=== PATIENT | male | born 1965 | race Caucasian/White ===

== ENCOUNTER → 2022-08-03 | Day surgery (SDC) | payer OTHER ==
[2022-07-29 13:58] VITALS: BMI 31.3
[~2022-08-03] MED LIST: BUPIVACAINE HCL/PF 0.5% (5MG/ML) 10 ML VIAL ONE; DEXMEDETOMIDINE HCL 200 MCG/2 ML IVPB ONE; LACTATED RINGERS SOLUTION 1,000 ML IV SCH; LIDOCAINE HCL 1%, 10 MG/ML (10ML VIAL) MDV ONE; LIDOCAINE HCL 1%, 10 MG/ML (20ML VIAL) NR ONE; MIDAZOLAM HCL 2 MG/2 ML SINGLE DOSE VIAL ONE; ONDANSETRON 4 MG/2 ML VIAL IVPUSH PRN; PROPOFOL 40 ML ONE; SUCCINYLCHOLINE CHLORIDE 200 MG/10 ML SYRINGE ONE; ceFAZolin SODIUM 1 GM VIAL IVPB ONE; oxyCODONE HCL 5 MG TABLET ONE; oxyCODONE HCL 5 MG TABLET PO PRN
[2022-08-03 12:46] VITALS: PULSE 80; RESP 20
[2022-08-03 13:41] VITALS: BP 115/79; TEMP 97.4
== END | disposition home or self-care (01) ==
LOC: JASU-SURG 04:21
PROVIDERS: ATTEND Surgery
PROC: 07B10ZX Excision of Right Neck Lymphatic, Open Approach, Diagnostic (ICD-10-PCS; principal; 2022-08-03 09:30)
DX: R59.0 Localized enlarged lymph nodes (principal)
CPT/HCPCS: 88307-TC; 94760

== ENCOUNTER 2022-10-14 03:57 | Day surgery (SDC) | payer OTHER ==
[2022-10-12 10:50] VITALS: BMI 34.7
[~2022-10-14 03:57] MED LIST changes: -BUPIVACAINE HCL/PF 0.5% (5MG/ML) 10 ML VIAL ONE; -DEXMEDETOMIDINE HCL 200 MCG/2 ML IVPB ONE; -LACTATED RINGERS SOLUTION 1,000 ML IV SCH; +LIDOCAINE 1% P/F 10 MG/ML VIAL INF ONE; -LIDOCAINE HCL 1%, 10 MG/ML (10ML VIAL) MDV ONE; -LIDOCAINE HCL 1%, 10 MG/ML (20ML VIAL) NR ONE; +MICROFIBRILLAR COLLAGEN 1 GM EACH TP ONE; -MIDAZOLAM HCL 2 MG/2 ML SINGLE DOSE VIAL ONE; -ONDANSETRON 4 MG/2 ML VIAL IVPUSH PRN; -PROPOFOL 40 ML ONE; -SUCCINYLCHOLINE CHLORIDE 200 MG/10 ML SYRINGE ONE; -oxyCODONE HCL 5 MG TABLET ONE; -oxyCODONE HCL 5 MG TABLET PO PRN
[2022-10-14] MEDS ORDERED: PROPOFOL 40 ML ONE (07:26)
[2022-10-14] MEDS ORDERED: ROCURONIUM BROMIDE 50 MG/5 ML SYRINGE ONE (07:27)
[2022-10-14] MEDS ORDERED: SUCCINYLCHOLINE CHLORIDE 200 MG/10 ML SYRINGE ONE ×2 (07:27→08:44)
[2022-10-14] MEDS ORDERED: LIDOCAINE HCL/PF 2% SDV 5ML VIAL ONE ×2 (07:27→08:18)
[2022-10-14] MEDS ORDERED: LIDOCAINE HCL 1%, 10 MG/ML (10ML VIAL) MDV ONE (07:28)
[2022-10-14] MEDS ORDERED: MIDAZOLAM HCL 2 MG/2 ML SINGLE DOSE VIAL ONE (08:17)
[2022-10-14] MEDS ORDERED: HYDROmorphone HCl 2 MG/ML VIAL ONE (08:17)
[2022-10-14] MEDS ORDERED: SEVOFLURANE 250 ML BTL ONE (08:17)
[2022-10-14] MEDS ORDERED: PROPOFOL 20 ML ONE (08:17)
[2022-10-14] MEDS ORDERED: DEXAMETHASONE SOD PHOSPHATE 4 MG/1 ML VIAL ONE (08:18)
[2022-10-14] MEDS ORDERED: ONDANSETRON 4 MG/2 ML VIAL ONE (08:18)
[2022-10-14] MEDS ORDERED: BUPIVACAINE HCL/PF 0.5% (5MG/ML) 10 ML VIAL ONE (08:40)
[2022-10-14] MEDS ORDERED: ceFAZolin SODIUM 1 GM VIAL ONE (08:40)
[2022-10-14] MEDS ORDERED: ceFAZolin SODIUM 1 GM VIAL IVPB ONE (08:40)
[2022-10-14] MEDS ORDERED: BUPIVACAINE HCL/PF 0.5% (5MG/ML) 10 ML VIAL IJ ONE ×2 (09:00)
[2022-10-14] MEDS ORDERED: LIDOCAINE 1%/EPI 1:100000 (50 ML MULTI DOSE VIAL) INF ONE ×2 (09:00)
[2022-10-14] MEDS ORDERED: ONDANSETRON 4 MG/2 ML VIAL IVPUSH PRN (09:52)
[2022-10-14] MEDS ORDERED: oxyCODONE HCL 5 MG TABLET PO PRN (09:52)
[2022-10-14] MEDS ORDERED: PROMETHAZINE HCL 25 MG/1 ML VIAL IVPB PRN (09:52)
[2022-10-14] MEDS ORDERED: ACETAMINOPHEN 1000 MG/100 ML BAG IVPB PRN (09:53)
[2022-10-14] MEDS ORDERED: LACTATED RINGERS SOLUTION 1,000 ML IV SCH (10:00)
[2022-10-14] MEDS ORDERED: MICROFIBRILLAR COLLAGEN 1 GM EACH TP ONE (10:03)
[2022-10-14] MEDS ORDERED: oxyCODONE HCL 5 MG TABLET ONE (12:20)
[2022-10-14 13:47] VITALS: BP 113/71; PULSE 86; RESP 20; TEMP 97.3
== END 2022-10-14 14:09 | disposition home or self-care (01) ==
LOC: JASU-SURG 03:57
PROVIDERS: ATTEND Surgery
PROC: 0HB4XZZ Excision of Neck Skin, External Approach (ICD-10-PCS; 2022-10-14)
PROC: 0CTG0ZZ Resection of Right Submaxillary Gland, Open Approach (ICD-10-PCS; principal; 2022-10-14 08:00)
DX: K11.9 Disease of salivary gland, unspecified (principal)
CPT/HCPCS: 88304-TC; 88307-TC; 93005; 93010; 94760